=== PATIENT | male | born 1970 | race Caucasian/White ===

== ENCOUNTER → 2017-07-09 | Outpatient (CLI) | payer BC ==
--- NOTE | 2017-07-09 13:18 | RAD ---
Right foot, 3 views, 07/09/2017: History: Foot pain No fracture or destructive bony lesion is seen. There is only minimal spurring at the midfoot level. There is mild subcutaneous edema. IMPRESSION: No acute bony abnormality is detected.
== END | disposition home or self-care (01) ==
LOC: DXRAD 11:16
PROVIDERS: ATTEND Family Medicine
DX: M25.871 Other specified joint disorders, right ankle and foot (principal); R60.9 Edema, unspecified
CPT/HCPCS: 73630